=== PATIENT | male | born 1995 | race African-American/Black ===

== ENCOUNTER 2018-12-19 17:44 | Emergency (ER) | payer MEDICAID ==
[~2018-12-19] VITALS: Ht 175.3 cm; Wt 71.8 kg
[2018-12-19 17:53] VITALS: Ht 175.3 cm; Wt 71.8 kg
[2018-12-19] MEDS ORDERED: LEXAPRO (17:54)
[2018-12-19] MEDS ORDERED: GABAPENTIN (17:54)
[2018-12-19] MEDS ORDERED: GEODON (17:55)
[2018-12-19] MEDS ORDERED: WELLBUTRIN (17:55)
[2018-12-19 18:24] LABS: COLOR YELLOW (YELLOW)
[2018-12-19 18:25] LABS: APPEARANCE CLEAR (CLEAR); BILIRUBIN NEGATIVE (NEGATIVE); GLUCOSE NEGATIVE (NEGATIVE); KETONE NEGATIVE (NEGATIVE); NITRITE NEGATIVE (NEGATIVE); PROTEIN NEGATIVE (NEGATIVE); UROBILINOGEN NORMAL (NORMAL)
[2018-12-19 18:37] LABS: UDS - AMPHET NEGATIVE QUAL (NEGATIVE); UDS - BARB NEGATIVE QUAL (NEGATIVE); UDS - BENZO NEGATIVE QUAL (NEGATIVE); UDS - COCAINE NEGATIVE QUAL (NEGATIVE); UDS - OPIATE NEGATIVE QUAL (NEGATIVE); UDS - PCP NEGATIVE QUAL (NEGATIVE); UDS - THC POSITIVE QUAL (NEGATIVE)
[2018-12-19 18:48] LABS: BASOPHILS 0.3 % (0-2); EOSINOPHILS 0.5 % (0-7); HEMATOCRIT 40.9 % (42.0-54.0); HEMOGLOBIN 13.8 g/dL (13.5-17.5); IMMATURE GRANULOCYTES 0.3 % (0-5); LYMPHOCYTES 21.9 % (15-50); MCH 27.7 pg (26.0-34.0); MCHC 33.7 g/dL (31.0-37.0); MEAN PLATELET VOLUME 8.8 fL (7.4-10.4); MONOCYTES 4.4 % (2-11); NEUTROPHILS 72.6 % (40-80); PLATELET COUNT 415 10x3/uL (130-400); RBC 4.99 10x6/uL (4.20-6.10); RDW 14.9 % (11.5-14.5); WBC 11.7 10x3/uL (4.8-10.8)
[2018-12-19 19:05] LABS: ALBUMIN 4.1 g/dL (3.4-5.0); ALKALINE PHOSPHATASE 84 U/L (46-116); ALT (SGPT) 13 U/L (10-68); BILIRUBIN - TOTAL 0.88 mg/dL (0.2-1.3); CALC OSMOLALITY 277 mosm/kg (275-300); CALCIUM 9.3 mg/dL (8.5-10.1); CARBON DIOXIDE 27.2 mmol/L (21.0-32.0); CHLORIDE - SERUM 103 mmol/L (98-107); CREATININE - SERUM 1.1 mg/dL (0.6-1.3); GLUCOSE 93 mg/dL (74-106); POTASSIUM - SERUM 4.2 mmol/L (3.5-5.1); PROTEIN - SERUM 7.7 g/dL (6.4-8.2); SODIUM 140 mmol/L (136-145); UREA NITROGEN 11 mg/dL (7-18); eGFR NON AFRICAN AMERICAN 89 mL/min (90-120)
--- NOTE | 2018-12-19 20:06 | NUR ---
DR GARCES NOTIFIED AND SITTER ORDERED. SITTER AT BEDSIDE. NOTIFED CHARGE NURSE AND ATTENDING IN REGARDS TO ASSESSMENT FINDNGS. RESOURCES GIEN TO PATIENT AND SAGETY PLAN INITATED.
[2018-12-19 21:27] VITALS: BP 132/84
== END 2018-12-19 22:58 ==
LOC: D.ER 17:44
PROVIDERS: Family Medicine
DX: R45.851 Suicidal ideations (principal); F32.9 Major depressive disorder, single episode, unspecified